=== PATIENT | female | born 2000 | race Caucasian/White ===

== ENCOUNTER 2025-01-25 16:22 | Emergency (ER) | payer OTHER, SELFPAY ==
[2025-01-25] VITALS (10 sets, daily range): BP systolic 143; BP diastolic 84; PULSE 100–119; RESP 20; TEMP 36.8; O2SAT 93–100; BMI 38.1
--- NOTE | 2025-01-25 16:40 | CRLHL7_ITS ---
For Patients: As a result of the Century Cures Act, medical imaging exams and procedure reports are released immediately into your electronic medical record. You may view this report before your referring provider. If you have questions, please contact your health care provider. Indication: Sore throat, sertraline use. Technique: Contrast-enhanced CT of the neck with multiplanar reconstruction utilizing 106 cc Isovue 370 iodinated intravenous contrast. Comparison: None available. Findings: Mild swelling of the tongue. Mild diffuse submucosal edema within the nasopharynx and enlargement of the adenoids. Additional mildly enlarged and edematous soft palate. No discrete rim enhancing abscess or retropharyngeal fluid collection. Mild symmetric enlargement of few upper cervical lymph nodes which retain their normal reniform morphology. Normal parotid and submandibular glands. Unremarkable thyroid. Clear lung apices. Normal major vascular structures. The imaged intracranial structures and orbits are within normal limits. Impression: 1. Diffuse swelling of the tongue, mild diffuse submucosal edema within the nasopharynx, an enlarged/edematous soft palate. Findings may represent angioedema in the appropriate clinical context. 2. No severe airway stenosis. 3. Few scattered borderline enlarged upper cervical lymph nodes bilaterally, nonspecific, but likely reactive. Please note that all CT scans at this facility use dose modulation, iterative reconstruction, and/or weight-based dosing when appropriate to reduce radiation dose to as low as reasonably achievable. Dictated by Gokul Soto MD @ 01/25/2025 5:59:02 PM (Electronically Signed)
--- NOTE | 2025-01-25 16:41 | ED.GENADULT ---
HPI - General Adult General Chief complaint: Sore Throat Stated complaint: sore throat Time Seen by Provider: 01/25/25 16:24 History of Present Illness HPI narrative: This 24-year-old female went to urgent care because of a sore throat that began 3 days ago. She had a negative strep test done there but was sent here with concern that she may have an abscess. The patient reports increased pain when opening her mouth. She does not report any fevers. She states she does have a cough. Related Data Home Medications ?Medication ?Instructions ?Recorded ?Confirmed albuterol sulfate 90 mcg/actuation 2 puff inhalation Q6H PRN wheezing 01/25/25 01/25/25 aerosol inhaler (Ventolin HFA) cetirizine 10 mg tablet 10 mg PO DAILY 01/25/25 01/25/25 clindamycin phosphate 1 % lotion 1 applic topical BID 01/25/25 01/25/25 clonidine HCl 0.3 mg tablet 0.3 mg PO QPM 01/25/25 01/25/25 etonogestrel 68 mg subdermal 1 implant subdermal ONCE 01/25/25 01/25/25 implant (Nexplanon) fluticasone propionate 50 2 spray intranasal DAILY 01/25/25 01/25/25 mcg/actuation nasal spray,suspension lamotrigine 100 mg tablet 100 mg PO QPM 01/25/25 01/25/25 mometasone-formoterol HFA 100 2 puff inhalation BID 01/25/25 01/25/25 mcg-5 mcg/actuation aerosol inhaler (Dulera) norethindrone 1.5 mg-ethinyl 1 tab PO DAILY 01/25/25 01/25/25 estradiol 30 mcg(21)/iron 75 mg(7) tablet (Junel FE 1.5/30 (28)) phentermine 37.5 mg tablet 37.5 mg PO DAILY 01/25/25 01/25/25 tretinoin 0.025 % topical cream applic topical QPM acne 01/25/25 01/25/25 Previous Rx's ?Medication ?Instructions ?Recorded ketorolac 10 mg tablet 10 mg PO TID 5 days #15 tabs 01/25/25 methylprednisolone 4 mg tablets in See Rx Instructions PO .COMPLEX 01/25/25 a dose pack (Medrol (Kael)) #21 ea Allergies Allergy/AdvReac Type Severity Reaction Status Date / Time amoxicillin AdvReac Intermediate Nausea Verified 01/25/25 17:18 sertraline (From Zoloft) AdvReac Verified 01/25/25 17:18 Review of Systems Status of ROS: Reports: 10 or more systems reviewed and unremarkable except as noted in History and below Narrative: Constitutional: No fevers, no weight gain or loss. Eyes: No discharge. No vision changes. HENT: No congestion, no ear pain. Sore throat. Cardiovascular: No chest pain, no palpitations. Respiratory: No shortness of breath, no wheezes. She reports a cough. Gastrointestinal: No abdominal pain, no vomiting, no diarrhea. Genitourinary: No dysuria, no hematuria. Musculoskeletal: Normal range of motion. Skin: No rashes, no pruritis. Neurological: No dizziness, weakness, sensory change, speech change. Endo/Heme/Allergies: No bruising or bleeding. No polydipsia. Pysch: no suicidality, no anxiety, no insomnia. All other systems reviewed and are negative. Exam Narrative: Exam Narrative: Constitutional: Well-developed, well-nourished, no acute distress. HEENT: Normocephalic, atraumatic. It is rather difficult to evaluate her oropharynx as her tongue is prominent and she is guarding. Even with a tongue blade I could not adequately see her posterior pharynx. Neck: Normal range of motion. Nontender. Supple. Heart: Regular. No murmurs. Tachycardia Intact distal pulses. Lungs: Clear to auscultation. No chest discomfort. No wheezes, rhonchi, or rales. Abdomen: Normal bowel sounds. Nontender. No rebound tenderness. Genitalia: Deferred. Back: No midline tenderness. Normal range of motion. Extremities: Normal range of motion. No injury. Skin: Intact. No rash. Warm. No erythema or pallor. Neurologic: No altered sensation. No weakness. Alert and oriented. Psychiatric: No suicidality. No anxiety or depression. No insomnia. Nursing notes and vitals signs are reviewed. Const: Vital Signs, click to edit/add: Vital Signs - 24 hr 01/25/25 16:25 01/25/25 16:49 01/25/25 17:00 Temperature 98.3 F Pulse Rate 109 H 108 H Pulse Rate [Pulse Oximeter] 119 H Respiratory Rate 20 Blood Pressure [Ri ght Upper Arm] 143/84 H Pulse Oximetry 99 100 100 Oxygen Delivery Me thod Room Air 01/25/25 17:26 Temperature Pulse Rate 110 H Pulse Rate [Pulse Oximeter] Respiratory Rate Blood Pressure [Ri ght Upper Arm] Pulse Oximetry 100 Oxygen Delivery Me thod Course Vital Signs Vital signs: Initial Vital Signs Temperature 98.3 F 01/25/25 16:25 Temperature Source Temporal Artery Scan 01/25/25 16:25 Pulse Rate 119 H 01/25/25 16:25 Respiratory Rate 20 01/25/25 16:25 Blood Pressure 143/84 H 01/25/25 16:25 Blood Pressure Mean 103 01/25/25 16:25 Blood Pressure Position Sitting 01/25/25 16:25 Pulse Oximetry 99 01/25/25 16:25 Oxygen Delivery Method Room Air 01/25/25 16:25 Vital Signs Temperature 98.3 F 01/25/25 16:25 Pulse Rate 119 H 01/25/25 16:25 Respiratory Rate 20 01/25/25 16:25 Blood Pressure 143/84 H 01/25/25 16:25 Pulse Oximetry 99 01/25/25 16:25 Oxygen Delivery Method Room Air 01/25/25 16:25 Temperature 98.3 F 01/25/25 16:25 Pulse Rate 110 H 01/25/25 17:26 Respiratory Rate 20 01/25/25 16:25 Blood Pressure 143/84 H 01/25/25 16:25 Pulse Oximetry 100 01/25/25 17:26 Oxygen Delivery Method Room Air 01/25/25 16:25 Medical Decision Making [facility] Narrative Medical decision making narrative: This 24-year-old female is reporting sore throat and has a difficult exam of her throat because her tongue is held and more prominent space. I did order CT scan with IV contrast of the soft tissues of her neck. This returns with no sign of abscess or other complication. She does have an enlarged tongue but no airway compromise. Her white blood cell count is a bit elevated at around 12. She did have a negative strep test at clinic prior to arrival here. The patient did receive an IV dose of dexamethasone 10 mg. She is okay to be discharged home. Most likely this is a viral infection. She received prescription for Medrol Dosepak Lab Data Labs: Lab Results 01/25/25 Range/Units 16:50 WBC 12.70 H (4.50-11.00) K/uL RBC 4.64 (4.00-5.20) m/uL Hgb 13.5 (12.0-16.0) gm/dL Hct 39.5 (33.0-51.0) % MCV 85 (80-100) fL MCH 29 (26-34) pg MCHC 34 (32-36) gm/dL RDW Coeff of Emery 12.5 (11.5-15.5) % Plt Count 265 (140-440) K/uL Neut % (Auto) 74.1 H (42.0-72.0) % Lymph % (Auto) 19.6 L (20-44) % Patrick % (Auto) 4.9 (0.0-11.0) % Eos % (Auto) 1.0 (0.0-7.0) % Baso % (Auto) 0.3 (0.0-3.0) % Neut # (Auto) 9.40 H (1.7-7.0) K/uL Lymph # (Auto) 2.50 (0.90-2.90) K/uL Patrick # (Auto) 0.60 (0.00-0.90) K/UL Eos # (Auto) 0.10 (0.00-0.50) K/uL Baso # (Auto) 0.00 (0.00-0.30) K/uL Abs Immat Gran (auto) 0.00 (0.00-0.30) K/uL Imm/Tot Granulo (auto) 0.1 % Imaging Data CT Soft Tissue Neck: Radiologist's impression: 1. Diffuse swelling of the tongue, mild diffuse submucosal edema within the nasopharynx, an enlarged/edematous soft palate. Findings may represent angioedema in the appropriate clinical context. 2. No severe airway stenosis. 3. Few scattered borderline enlarged upper cervical lymph nodes bilaterally, nonspecific, but likely reactive. Discharge Plan Discharge Clinical Impression: Pharyngitis Patient Disposition: Home, Self-Care Condition: Stable Additional Instructions: Take medication as prescribed. Okay to use Tylenol also with these medications. Follow up with MD return if worsening symptoms occur. Prescriptions: New ketorolac 10 mg tablet 10 mg PO TID 5 Days Qty: 15 0RF methylprednisolone [Medrol (Kael)] 4 mg tablets,dose pack See Rx Instructions .ROUTE .COMPLEX Qty: 21 0RF Rx Instructions: orally per package directions No Action fluticasone propionate 50 mcg/actuation spray,suspension 2 spray intranasal DAILY cetirizine 10 mg tablet 10 mg PO DAILY albuterol sulfate [Ventolin HFA] 90 mcg/actuation HFA aerosol inhaler 2 puff inhalation Q6H PRN (Reason: wheezing) phentermine 37.5 mg tablet 37.5 mg PO DAILY norethindrone-e.estradiol-iron [ 1.5/30 (28)] 1.5 mg-30 mcg (21)/75 mg (7) tablet 1 tab PO DAILY clindamycin phosphate 1 % lotion 1 applic topical BID tretinoin 0.025 % cream topical QPM Dulera 100-5 mcg/actuation HFA aerosol inhaler 2 puff inhalation BID lamotrigine 100 mg tablet 100 mg PO QPM clonidine HCl 0.3 mg tablet 0.3 mg PO QPM Nexplanon 68 mg implant 1 implant subdermal ONCE Rx Instructions: as a single dose Follow Up/Referrals: Provider,Not a Local [Primary Care Provider] - Stand Alone Forms: [facility] Info Inst[facility]
[2025-01-25 16:58] LABS: Basophils Percent Auto 0.3 % (0.0-3.0); Hematocrit 39.5 % (33.0-51.0); Hemoglobin* 13.5 gm/dL (12.0-16.0); Immature Granulocytes Pct Auto 0.1 %; Lymphocytes Percent Auto 19.6 % (20-44); Mean Corpuscular HGB Conc 34 gm/dL (32-36); Mean Corpuscular Hemoglobin 29 pg (26-34); Mean Corpuscular Volume 85 fL (80-100); Monocytes Percent Auto 4.9 % (0.0-11.0); Neutrophils Percent Auto 74.1 % (42.0-72.0); Platelet Count* 265 K/uL (140-440); RDW Coefficient of Variation % 12.5 % (11.5-15.5); Red Blood Count 4.64 m/uL (4.00-5.20); Slide Review Reflex No
--- OUTSIDE RECORDS SUMMARY | 2025-01-25 17:26 | XMS_ITS | CCD ---
Author Organization Unknown Care Team Providers Care National Van Owner Operator Name Role Phone Voice Over Artist, [place] Primary Care Provider Unava ilable Unavailable Chronic Care Management Unavaila ble Summary Purpose DataExchange Insurance Providers Payer name Policy type / Coverage type Covered constitution party ID Effective Begin Date Effective End Date [employer] [id number] Unknown Unkn own Family History Family History data not found Medication Administered No Medication Administered data Reason For Visit No Reason For Visit data
[2025-01-25] MEDS: dexAMETHasone 4 MG/ML VIAL 10 MG IV (18:44)
== END 2025-01-25 18:53 | disposition home or self-care (01) ==
PROVIDERS: Emergency Provider Emergency Medicine Emergency Medical Services
DX: J02.9 Acute pharyngitis, unspecified (principal)
CPT/HCPCS: 36415; 70491; 85025; 99283; 99284; J1100; Q9967